=== PATIENT | female | born 1975 | race Caucasian/White ===

== ENCOUNTER 2017-11-22 11:32 | Emergency (ER) | payer SELFPAY ==
[~2017-11-22] VITALS: Ht 162.6 cm; Wt 68.0 kg
[2017-11-22] MEDS ORDERED: MORPHINE SULFATE 4 MG/ML CPJ (NOT FOR IM USE) IV STA (12:09)
[2017-11-22] MEDS ORDERED: ONDANSETRON HCL 4MG/2ML INJ IV STA (12:09)
[2017-11-22 12:37] LABS: BASOPHILS % 0.3 % (0.0-2.0); EOSINOPHILS % 0.8 % (0.0-5.0); HEMATOCRIT. 36.3 % (36.0-48.0); HEMOGLOBIN. 12.5 g/dL (12.0-16.0); LYMPHOCYTES % 27.2 % (20.0-50.0); MEAN CORPUSCULAR HEMOGLOBIN 30.6 pg (28.0-32.0); MEAN CORPUSCULAR VOLUME 88.8 fL (81.0-99.0); MEAN PLATELET VOLUME 8.5 fl (7.4-10.4); MONOCYTES % 6.3 % (2.0-8.0); NEUTROPHILS % 65.4 % (40.0-76.0); PLATELET 229 x1000/uL (130-400); RED BLOOD CELL COUNT 4.09 mill/uL (4.2-5.4); RED CELL DISTRIBUTION WIDTH 13.4 % (11.6-14.6)
[2017-11-22 12:42] LABS: CHLORIDE 103 mEq/L (98-107)
[2017-11-22 13:10] LABS: HCG SCREEN NEGATIVE
[2017-11-22] MEDS ORDERED: IOHEXOL-300 100 ML BOTTLE ONE (13:47)
[2017-11-22 13:55] VITALS: BP 163/82
== END 2017-11-22 14:31 | disposition home or self-care (01) ==
LOC: ER 11:32
DX: S70.11XA Contusion of right thigh, initial encounter (principal); S40.011A Contusion of right shoulder, initial encounter; R07.89 Other chest pain; R10.9 Unspecified abdominal pain; V49.50XA Passenger injured in collision with unspecified motor vehicles in traffic accident, initial encounter; Y93.89 Activity, other specified; Y92.410 Unspecified street and highway as the place of occurrence of the external cause; E11.65 Type 2 diabetes mellitus with hyperglycemia; I10 Essential (primary) hypertension
CPT/HCPCS: 36415; 71260; 74177; 80053; 81025; 83690; 84703; 85025; 96374; 96375; 99285; J2270; J2405; J7030; Q9967